=== PATIENT | female | born 1965 | race Caucasian/White ===

== ENCOUNTER 2022-04-27 10:36 | Emergency (ER) | payer SELFPAY ==
[2022-04-27 10:49] VITALS: BP 130/73; PULSE 90; RESP 16; TEMP 37; O2SAT 98
--- NOTE | 2022-04-27 11:05 | ED.URI ---
HPI - URI/Sore Throat General Chief Complaint: Upper Respiratory Infection Stated Complaint: sinus issues Time Seen by Provider: 04/27/22 11:05 Source: patient and RN notes reviewed History of Present Illness HPI Narrative: Patient is a 56-year-old female who presents to urgent care with complaints of sinus pressure, congestion, headache. Patient states symptoms started on Monday and she been using [id number] allergy medication, Tylenol, cough drops and sinus medication. Patient denies any fever, nausea, vomiting or exposures. No other acute complaints. No acute distress noted. Patient aware of the plan of care. Some parts of this dictation were generated by voice recognition software and may contain typographical and/or grammatical inaccuracies. Related Data Home Medications Medication Instructions Recorded Confirmed fluoxetine 20 mg capsule 20 mg PO DAILY 04/27/22 04/27/22 rosuvastatin 10 mg tablet 10 mg PO DAILY 04/27/22 04/27/22 Allergies Allergy/AdvReac Type Severity Reaction Status Date / Time azithromycin Allergy Swelling Verified 04/27/22 11:13 of Lip/Tongue/Throat codeine Allergy Unknown Verified 04/27/22 11:13 Review of Systems Review of Systems: CONSTITUTIONAL: Denies fever, chills, or sweats. EYES: Denies visual changes, redness, or discharge. ENT: Reports of drainage, sinus congestion, pressure, mild sore throat CARDIOVASCULAR: Denies chest pain, palpitations, or edema. RESPIRATORY: Reports of cough without dyspnea GASTROINTESTINAL: Denies abdominal pain, nausea, vomiting, or diarrhea. GENITOURINARY: Denies dysuria or hematuria. SKIN: Denies rash or itching. MUSCULOSKELETAL: Denies back pain, joint pain, or myalgia. NEUROLOGIC: Denies headache, numbness, or weakness. All other systems reviewed are negative, except as documented in HPI. PMFSH Comments At the time of my signature, I reviewed and agree with the nursing past medical, surgical, social, and family history. There is no relevant family history pertinent to the patient complaint. Exam Narrative: GENERAL: This is a well-nourished, well-developed patient, in no apparent distress. HEAD: normocephalic, atraumatic. Frontal sinus tenderness EYES: PERRL. Sclera clear/white. Vision is grossly intact. EARS: External ears normal, auditory canals clear and without drainage, TMs normal without perforation. Hearing grossly intact. NOSE: External nose normal with no obvious nasal discharge, mild erythema to bilateral nares and clear rhinorrhea THROAT: Mucous membranes moist, posterior pharynx clear. Mild postnasal drainage NECK: Neck supple, non-tender without lymphadenopathy CARDIOVASCULAR: Regular rate and rhythm RESPIRATORY: Scant inspiratory wheezes. SKIN: warm, intact with no suspicious lesions or rash, good texture and turgor. NEURO: awake, alert, and oriented to person, place and time. There were no obvious focal neurologic abnormalities. EXTREMITIES: No clubbing, cyanosis, or edema. Course Course Level of Care: Express Care Visit Vital Signs Vital signs: Vital Signs Temperature 98.6 F 04/27/22 10:49 Pulse Rate 90 04/27/22 10:49 Respiratory Rate 16 04/27/22 10:49 Blood Pressure 130/73 04/27/22 10:49 Pulse Oximetry 98 04/27/22 10:49 Oxygen Delivery Room Air 04/27/22 10:49 Temperature 98.6 F 04/27/22 10:49 Pulse Rate 90 04/27/22 10:49 Respiratory Rate 16 04/27/22 10:49 Blood Pressure 130/73 04/27/22 10:49 Pulse Oximetry 98 04/27/22 10:49 Oxygen Delivery Room Air 04/27/22 10:49 Reviewed MDM - URI/Sore Throat MDM Narrative Medical decision making narrative: Advised patient complete the steroid regimen as prescribed. Be sure to eat and drink with medication. Continue daily antihistamine [id number] such as Claritin or Zyrtec. Use Flonase nasal spray prior to bedtime. Use the inhaler as needed for wheezing or coughing fits. Use the Tessalon Perles as needed for cough.
== END 2022-04-27 11:25 | disposition home or self-care (01) ==
PROVIDERS: Emergency Provider Nurse Practitioner Family
DX: J40 Bronchitis, not specified as acute or chronic (principal); E78.00 Pure hypercholesterolemia, unspecified; F41.9 Anxiety disorder, unspecified
CPT/HCPCS: 99213; G0463

== ENCOUNTER 2023-11-06 16:28 | Emergency (ER) | payer OTHER, SELFPAY ==
[2023-11-06 16:34] VITALS: BP 128/73; PULSE 92; RESP 20; TEMP 37.2; O2SAT 95
--- NOTE | 2023-11-06 17:20 | ED.SKABFB ---
HPI - Skin/Abscess/Foreign Bdy General Chief complaint: Skin/Abscess/Foreign Body Stated complaint: Insect Bite/Right Leg History of Present Illness HPI narrative: patient is a 58-year-old female, presents to [facility] with an insect bite of some sort to the right medial thigh, she noticed this through the night /early hours this morning while sleeping. She did not feel anything bite or sting her. She noticed an area that was itchy and be interesting as she rubbed the area. She has since developed increased redness and pruritus to the area throughout the day. She has not attempted any modifying factors. She has no other skin surfaces with similar eruptions. She denies history of MRSA, she has no fevers or chills. Related Data Home Medications Medication Instructions Recorded Confirmed fluoxetine 20 mg capsule 20 mg PO DAILY 04/27/22 04/27/22 rosuvastatin 10 mg tablet 10 mg PO DAILY 04/27/22 04/27/22 Allergies Allergy/AdvReac Type Severity Reaction Status Date / Time azithromycin Allergy Swelling Verified 04/27/22 11:13 of Lip/Tongue/Throat codeine Allergy Unknown Verified 04/27/22 11:13 Review of Systems Integumentary/Breasts: Comments: Refer HPI Exam Const: General: cooperative, healthy appearing, comfortable and no acute distress Nutritional Appearance: average body habitus Orientation/consciousness: oriented to person Limitations: no limitations HENMT: Head: normal to inspection Ears: hearing grossly normal bilaterally Face and sinus: normal facial exam, sinuses nontender and face symmetric Mouth: Yes Normal oral and palatal mucosa present, Yes lip normal and Yes tongue normal Throat: posterior oropharynx normal Eyes: General: appearance normal, both eyes and all related structures Conjunctivae: conjunctivae normal Neck: Neck: normal visual inspection, full ROM and no lymphadenopathy Resp: Effort & Inspection: normal respiratory effort Auscultation: clear to auscultation bilaterally Cardio: Rate: regular rate Rhythm: regular rhythm Heart sounds: S1 normal heart sound present and S2 normal heart sound present Peripheral pulses: Peripheral pulses 2+ throughout Skin: General skin exam: normal color and other ( see below) Other: patient has a to thisn annular dark pink erythematous lesion to the right medial thigh, proximal to the groin, with approximately 5 cm of light pink erythema surrounding, welded and consistent with an allergic eruption. There are no pustules or vesicles, no lymphangitis. the entire area blanches with brisk capillary refill. The area is minimally tender to palpation and pruritic when palpated. calves are symmetrical bilaterally, no palpable cord Neuro: General: oriented to person, oriented to place, oriented to time and patient oriented x3 Cranial nerves: Yes CN's II-XII intact bilaterally Extrem: General: normal to inspection ( except as noted skin exam) and full ROM Course Course Emergency Course: patient's skin rashes consistent with an insect bite, sting however she does have tenderness to palpation and concern for possible brown recluse bite is discussed. Will treat with short steroid course, oral antibiotics, close follow-up with PCP stressed. Patient verbalized understanding she is agreeable discharge plan of care. Level of Care: Express Care Visit ([id number]) Vital Signs Vital signs: Vital Signs Temperature 37.2 C 11/06/23 16:34 Pulse Rate 92 11/06/23 16:34 Respiratory Rate 20 11/06/23 16:34 Blood Pressure 128/73 11/06/23 16:34 Pulse Oximetry 95 11/06/23 16:34 Oxygen Delivery Room Air 11/06/23 16:34 Temperature 37.2 C 11/06/23 16:34 Pulse Rate 92 11/06/23 16:34 Respiratory Rate 20 11/06/23 16:34 Blood Pressure 128/73 11/06/23 16:34 Pulse Oximetry 95 11/06/23 16:34 Oxygen Delivery Room Air 11/06/23 16:34 MDM - Skin/Abscess/Foreign Bdy MDM Narrative Medical decision making narrative:
== END 2023-11-06 17:35 | disposition home or self-care (01) ==
PROVIDERS: Emergency Provider Nurse Practitioner Family
DX: S70.361A Insect bite (nonvenomous), right thigh, initial encounter (principal); W57.XXXA Bitten or stung by nonvenomous insect and other nonvenomous arthropods, initial encounter
CPT/HCPCS: 99213; G0463